=== PATIENT | male | born 1980 | race Caucasian/White ===

== ENCOUNTER 2018-05-30 06:05 | Emergency (ER) | payer MEDICAID, OTHER ==
[2018-05-30] MEDS ORDERED: Sodium Chloride 0.9% 1,000 ML IV SCH (07:15)
--- NOTE | 2018-05-30 07:23 | EDM.PDOC ---
ED HPI GENERAL MEDICAL PROBLEM - General Chief Complaint: Abdominal Pain Stated Complaint: STOMACH PAINS Time Seen by Provider: 05/30/18 07:20 Source of Information: Reports: Patient History Limitations: Reports: No Limitations - History of Present Illness INITIAL COMMENTS - FREE TEXT/NARRATIVE: pt arrived with pain in the upper abdoman. This started mainly in the rt upper quadrant and then moved to the mid abdoman. Onset: Gradual, Other ( started on and off for the past month. This has been worse for the past 2 days. ) Duration: Day(s): Location: Reports: Abdomen Associated Symptoms: Reports: Nausea/Vomiting abd pain Pain Score (Numeric/FACES): 4 - Related Data Allergies Allergy/AdvReac Type Severity Reaction Status Date / Time amoxicillin Allergy Hives Verified 05/30/18 06:43 Penicillins Allergy Hives Verified 05/30/18 06:43 Home Meds: Home Meds Albuterol [Ventolin HFA] 2 puff .XX Q4H PRN 05/30/18 [History] Fluticasone/Salmeterol [Advair 250-50 Diskus] 1 puff IH DAILY 05/30/18 [History] Oxymetazoline [Nasal Decongestant] 2 sprays BRITTANY BID PRN 05/30/18 [History] Past Medical History HEENT History: Reports: Allergic Rhinitis Respiratory History: Reports: Asthma Gastrointestinal History: Reports: None Musculoskeletal History: Reports: Fracture, Other (See Below) Other Musculoskeletal History: surgical repair of muscles in the neck Neurological History: Reports: Other (See Below) 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 - Infectious Disease History Infectious Disease History: Reports: Chicken Pox - Past Surgical History HEENT Surgical History: Reports: Myringotomy w Tube(s) GI Surgical History: Reports: Hernia, Abdominal Social & Family History - Tobacco Use Smoking Status *Q: Never Smoker - Caffeine Use Caffeine Use: Reports: Coffee, Soda - Recreational Drug Use Recreational Drug Use: No ED ROS GENERAL - Review of Systems Review Of Systems: See Below Constitutional: Reports: Decreased Appetite HEENT: Reports: No Symptoms Respiratory: Reports: No Symptoms Cardiovascular: Reports: No Symptoms Endocrine: Reports: No Symptoms GI/Abdominal: Reports: Abdominal Pain, Other (pt has had alot of bloating and pain in the upper abdoman. ) : Reports: No Symptoms Musculoskeletal: Reports: No Symptoms Skin: Reports: No Symptoms Neurological: Reports: No Symptoms Psychiatric: Reports: No Symptoms ED EXAM, GI/ABD - Physical Exam Exam: See Below Text/Narrative:: pt arrived with pain in the upper abdoman. He feels bloated and nauseated alot. He is not vomiting. This started 1 month ago but he he has been much worse the past 2 days. Exam Limited By: No Limitations General Appearance: Alert, Moderate Distress, Other (pt is rating his pain at a 4. ) Ears: Normal TMs Nose: Normal Inspection Throat/Mouth: Normal Inspection Head: Atraumatic Neck: Normal Inspection Respiratory/Chest: No Respiratory Distress Cardiovascular: Regular Rate, Rhythm GI/Abdominal Exam: Other (mild tenderness in the upper abdoman. He is better since he arrived. ) (Male) Exam: Deferred Rectal (Males) Exam: Deferred Back Exam: Normal Inspection Extremities: Normal Inspection Neurological: Alert, Oriented, Normal Cognition Psychiatric: Normal Affect Course - Vital Signs Last Recorded V/S: Last Vital Signs Temp 36.0 C 05/30/18 06:45 Pulse 81 05/30/18 06:45 Resp 16 05/30/18 06:45 BP 127/90 05/30/18 06:45 Pulse Ox 96 05/30/18 06:45 - Orders/Labs/Meds Orders: Active Orders 24 hr Category Date Time Status UA W/MICROSCOPIC [URIN] Urgent Lab 05/30/18 07:13 Ordered Ondansetron [Zofran ODT] Med 05/30/18 08:17 Once 4 mg PO ONETIME ONE Medication Orders Ondansetron HCl (Zofran Odt) 4 mg PO ONETIME ONE Stop: 05/30/18 08:18 Labs: Laboratory Tests 05/30/18 05/30/18 05/30/18 Range/Units 07:19 07:27 07:27 WBC 11.1 H (4.5-11.0) K/uL RBC 5.22 (4.30-5.90) M/uL Hgb 15.0 (12.0-15.0) g/dL Hct 44.7 (40.0-54.0) % MCV 86 (80-98) fL MCH 29 (27-31) pg MCHC 34 (32-36) % Plt Count 292 (150-400) K/uL Neut % (Auto) 86 H (36-66) % Lymph % (Auto) 10 L (24-44) % [place] % (Auto) 3 (2-6) % Eos % (Auto) 1 L (2-4) % Baso % (Auto) 0 (0-1) % Sodium 138 L (140-148) mmol/L Potassium 4.3 (3.6-5.2) mmol/L Chloride 101 (100-108) mmol/L Carbon Dioxide 30 (21-32) mmol/L Anion Gap 11.3 (5.0-14.0) mmol/L BUN 14 (7-18) mg/dL Creatinine 0.9 (0.8-1.3) mg/dL Est Cr Clr Drug Dosing 116.03 mL/min Estimated GFR (MDRD) > 60 (>60) Glucose 106 (74-106) mg/dL Calcium 9.6 (8.5-10.1) mg/dL Total Bilirubin 0.3 (0.2-1.0) mg/dL AST 17 (15-37) U/L ALT 43 (12-78) U/L Alkaline Phosphatase 57 (46-116) U/L C-Reactive Protein 0.19 (0.0-0.3) mg/dL Total Protein 7.4 (6.4-8.2) g/dL Albumin 4.0 (3.4-5.0) g/dL Globulin 3.4 (2.3-3.5) g/dL Albumin/Globulin Ratio 1.2 (1.2-2.2) Lipase 122 (73-393) U/L Meds: Medications Generic Name Dose Route Start Last Admin Trade Name Freq PRN Reason Stop Dose Admin Ondansetron HCl 4 mg 05/30/18 08:17 Zofran Odt PO 05/30/18 08:18 ONETIME ONE Discontinued Medications Generic Name Dose Route Start Last Admin Trade Name Freq PRN Reason Stop Dose Admin Sodium Chloride 1,000 mls @ 999 mls/hr 05/30/18 07:15 Normal Saline IV ASDIRECTED BRUCE Pantoprazole Sodium 40 mg 05/30/18 08:04 05/30/18 08:09 Protonix PO 05/30/18 08:05 40 mg DAILY ONE Administration - Re-Assessments/Exams Free Text/Narrative Re-Assessment/Exam: 05/30/18 07:59 pt has a wbc at 11,000. He has normal lab work otherwise. He had a limited abdoman Us which showed a normal gb. Will plan to have the pt scoped. Departure - Departure Time of Disposition: 08:01 Disposition: Home, Self-Care 01 Condition: Fair Clinical Impression: Gastrointestinal irritation - Discharge Information Referrals: Trevor Bach MD [Primary Care Provider] - Forms: ED Department Discharge Care Plan Goals: continue same meds, prilosec 20 mg daily schedule gastroscoping prior to pt leaving the ER zoforan 4mg subling q6h as needed for nausea., elevate head when resting with pillows. - My Orders Last 24 Hours: My Active Orders 05/30/18 07:13 UA W/MICROSCOPIC [URIN] Urgent 05/30/18 08:17 Ondansetron [Zofran ODT] 4 mg PO ONETIME ONE - Assessment/Plan Last 24 Hours: My Active Orders 05/30/18 07:13 UA W/MICROSCOPIC [URIN] Urgent 05/30/18 08:17 Ondansetron [Zofran ODT] 4 mg PO ONETIME ONE
--- NOTE | 2018-05-30 08:00 | CRLUS ---
INDICATION: Right upper quadrant pain. TECHNIQUE: Ultrasound abdomen limited. Sonographic images of the right upper quadrant were obtained using alan-scale and color Doppler images. COMPARISON: No comparison FINDINGS: Liver: Normal in size and echotexture. No masses. No intrahepatic biliary dilatation. Gallbladder: No stones or sludge. Normal wall thickness. No pericholecystic fluid. Common bile duct: 4 mm. Pancreas: Unremarkable. Right kidney: 11.6 cm. Normal echotexture and cortex. No masses, stones, or hydronephrosis. Vasculature: Proximal abdominal aorta and IVC are unremarkable. IMPRESSION: Unremarkable right upper quadrant ultrasound. Dictated by Jose Antonio Schrader MD @ May 30 2018 7:58AM Signed by Dr. Jose Antonio Schrader @ May 30 2018 7:58AM
[2018-05-30] MEDS ORDERED: Pantoprazole 40 MG Tab.CR PO ONE (08:04)
[2018-05-30] MEDS ORDERED: Ondansetron 4 MG Tab.DIS PO ONE (08:17)
== END 2018-05-30 08:43 | disposition home or self-care (01) ==
LOC: JP.ED 06:05
DX: K31.89 Other diseases of stomach and duodenum (principal); J45.909 Unspecified asthma, uncomplicated; Z79.51 Long term (current) use of inhaled steroids; Z79.899 Other long term (current) drug therapy; Z88.1 Allergy status to other antibiotic agents; Z88.0 Allergy status to penicillin
CPT/HCPCS: 36415; 76705; 80053; 83690; 85025; 86140; 99284; A9270

== ENCOUNTER 2018-05-30 22:49 | Emergency (ER) | payer MEDICAID ==
--- NOTE | 2018-05-30 23:23 | EDM.PDOC ---
ED HPI GENERAL MEDICAL PROBLEM - General Chief Complaint: Abdominal Pain Stated Complaint: ABD PAIN Time Seen by Provider: 05/30/18 23:10 Source of Information: Reports: Patient, Old Records, RN History Limitations: Reports: No Limitations - History of Present Illness INITIAL COMMENTS - FREE TEXT/NARRATIVE: 38 yo male was seen here early this morning for abdominal pain. His work up including blood work and an US were unremarkable. He was prescribed Zofran for nausea which he is taking with partial relief of his nausea. No fever. No black or bloody stools. Has not had a pHx of PUD. Points to the epigastrium as his area of pain. Pain is increased several minutes after eating. Also prescribed omeprazole and gastroscopy is scheduled. His only surgery on his abdomen was for hernia repair as a child. Onset: Today Onset Date: 05/30/18 Onset Time: 06:00 Duration: Hour(s):, Constant Location: Reports: Abdomen Quality: Reports: Ache Severity: Moderate Improves with: Reports: None Worsens with: Reports: Eating Context: Reports: Other (See HPI) Associated Symptoms: Reports: Loss of Appetite, Nausea/Vomiting. Denies: Fever/ Chills Treatments [employer]: Reports: Other (see below) (zofran, Prilosec) Left Upper Abdomen Pain Score (Numeric/FACES): 8 - Related Data Allergies Allergy/AdvReac Type Severity Reaction Status Date / Time amoxicillin Allergy Hives Verified 05/30/18 23:04 Penicillins Allergy Hives Verified 05/30/18 23:04 shellfish derived Allergy Cannot Verified 05/31/18 00:02 Remember Home Meds: Home Meds Albuterol [Ventolin HFA] 2 puff .XX Q4H PRN 05/30/18 [History] Fluticasone/Salmeterol [Advair 250-50 Diskus] 1 puff IH DAILY 05/30/18 [History] Ondansetron [Zofran ODT] 4 mg PO Q6H PRN 05/30/18 [History] Oxymetazoline [Nasal Decongestant] 2 sprays BRITTANY BID PRN 05/30/18 [History] Past Medical History HEENT History: Reports: Allergic Rhinitis Respiratory History: Reports: Asthma Gastrointestinal History: Reports: None Musculoskeletal History: Reports: Fracture, Other (See Below) Other Musculoskeletal History: surgical repair of muscles in the neck Neurological History: Reports: Other (See Below) 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 - Infectious Disease History Infectious Disease History: Reports: Chicken Pox - Past Surgical History HEENT Surgical History: Reports: Myringotomy w Tube(s) GI Surgical History: Reports: Hernia, Abdominal Social & Family History - Tobacco Use Smoking Status *Q: Never Smoker - Caffeine Use Caffeine Use: Reports: Coffee, Soda - Recreational Drug Use Recreational Drug Use: No ED ROS GENERAL - Review of Systems Review Of Systems: See Below Constitutional: Reports: No Symptoms HEENT: Reports: No Symptoms Respiratory: Reports: No Symptoms Cardiovascular: Reports: No Symptoms Endocrine: Reports: No Symptoms GI/Abdominal: Reports: Abdominal Pain, Decreased Appetite, Nausea. Denies: Black Stool, Bloody Stool, Constipation, Diarrhea, Distension, Flatus, Hematemesis, Hematochezia, Melena, Vomiting : Reports: No Symptoms Musculoskeletal: Reports: No Symptoms Skin: Reports: No Symptoms Neurological: Reports: No Symptoms Psychiatric: Reports: No Symptoms ED EXAM, GI/ABD - Physical Exam Exam: See Below Exam Limited By: No Limitations General Appearance: Alert, WD/WN, Mild Distress Eyes: Bilateral: Normal Appearance Ears: Normal External Exam, Normal Canal, Hearing Grossly Normal Nose: Normal Inspection, No Blood Throat/Mouth: Normal Inspection, Normal Lips, Normal Oropharynx, Normal Voice, No Airway Compromise Head: Atraumatic, Normocephalic Neck: Normal Inspection Respiratory/Chest: No Respiratory Distress, Lungs Clear, Normal Breath Sounds, No Accessory Muscle Use Cardiovascular: Regular Rate, Rhythm, No Edema GI/Abdominal Exam: Soft, No Distention, Tender (epigastrium), Abnormal Bowel Sounds (increased). No: Non-Tender, Distended, Guarding, Rigid, Rebound Back Exam: Normal Inspection. No: CVA Tenderness (R), CVA Tenderness (L) Extremities: Normal Inspection, Normal Range of Motion, Non-Tender, No Pedal Edema Neurological: Alert, Oriented, CN II-XII Intact, Normal Cognition, No Motor/ Sensory Deficits Psychiatric: Normal Affect, Normal Mood Skin Exam: Warm, Dry, Intact, Normal Color, No Rash Course - Vital Signs Text/Narrative:: Did not get relief from GI cocktail po. Last Recorded V/S: Last Vital Signs Temp 36.6 C 05/31/18 00:21 Pulse 73 02/16/19 00:21 Resp 16 05/31/18 00:21 BP 144/99 H 05/31/18 00:21 Pulse Ox 98 05/31/18 00:21 - Orders/Labs/Meds Orders: Active Orders 24 hr Category Date Time Status Hemoccult [Fecal Occult Blood Collection] [RC] Care 05/30/18 23:55 Active ASDIRECTED H. PYLORI STOOL AG, EIA Routine Lab 05/30/18 23:23 Ordered Iopamidol [Isovue-300 (61%)] Med 05/31/18 00:22 Active 129 ml IV . DIRECTED PRN Sodium Chloride 0.9% [Normal Saline] 70 ml Med 05/31/18 00:30 Active IV ASDIRECTED Medication Orders Sodium Chloride (Normal Saline) 70 mls @ 3.5 mls/sec IV ASDIRECTED BRUCE Last Admin: 05/31/18 00:40 Dose: 3.5 mls/sec Iopamidol (Isovue-300 (61%)) 129 ml IV . DIRECTED PRN PRN Reason: RADIOLOGY EXAM Stop: 06/01/18 00:23 Last Admin: 05/31/18 00:40 Dose: 129 ml Labs: Laboratory Tests 05/30/18 05/30/18 05/30/18 Range/Units 23:20 23:30 23:30 WBC 15.2 H (4.5-11.0) K/uL RBC 5.17 (4.30-5.90) M/uL Hgb 14.7 (12.0-15.0) g/dL Hct 44.2 (40.0-54.0) % MCV 86 (80-98) fL MCH 28 (27-31) pg MCHC 33 (32-36) % Plt Count 292 (150-400) K/uL C-Reactive Protein 0.23 (0.0-0.3) mg/dL Lipase 180 (73-393) U/L Meds: Medications Generic Name Dose Route Start Last Admin Trade Name Freq PRN Reason Stop Dose Admin Sodium Chloride 70 mls @ 3.5 mls/sec 05/31/18 00:30 05/31/18 00:40 Normal Saline IV 3.5 mls/sec ASDIRECTED BRUCE Administration Iopamidol 129 ml 05/31/18 00:22 05/31/18 00:40 Isovue-300 (61%) IV 06/01/18 00:23 129 ml . DIRECTED PRN Administration RADIOLOGY EXAM Discontinued Medications Generic Name Dose Route Start Last Admin Trade Name Curt PRN Reason Stop Dose Admin Al Hydroxide/Mg Hydroxide 15 0 ml 05/30/18 23:17 05/30/18 23:30 ml/ Lidocaine HCl 15 ml PO 05/30/18 23:18 30 ml ONETIME ONE Administration Diphenhydramine HCl 50 mg 05/31/18 00:10 05/31/18 00:17 Benadryl IVPUSH 05/31/18 00:11 50 mg ONETIME ONE Administration Hydromorphone HCl 1 mg 05/30/18 23:47 05/31/18 00:04 Dilaudid IVPUSH 05/30/18 23:48 1 mg ONETIME ONE Administration Lactated Ringer's 1,000 mls @ 1,000 mls/hr 05/30/18 23:47 05/31/18 00:07 Ringers, Lactated IV 05/31/18 00:46 1,000 mls/hr BOLUS ONE Administration Sodium Chloride 10 ml 05/31/18 00:22 05/31/18 00:31 Saline Flush FLUSH 05/31/18 00:23 10 ml ONETIME ONE Administration - Radiology Interpretation Free Text/Narrative:: CT abd/pelvis with IV contrast-neg CT Results Date: 05/30/18 Departure - Departure Time of Disposition: 01:25 Disposition: Home, Self-Care 01 Condition: Fair Clinical Impression: Abdominal pain Qualifiers: Abdominal location: upper abdomen, unspecified Qualified Code(s): R10.10 - Upper abdominal pain, unspecified - Discharge Information *PRESCRIPTION DRUG MONITORING PROGRAM REVIEWED*: No *COPY OF PRESCRIPTION DRUG MONITORING REPORT IN PATIENT JOHN: No Instructions: Abdominal Pain, Adult, [id number] Referrals: Trevor Bach MD [Primary Care Provider] - Forms: ED Department Discharge Additional Instructions: Add Percocet OR acetaminophen to your current medications. Recheck in the clinic on Saturday, return here if worse in the interim. Keep your scheduled appt for gastroscopy. - My Orders Last 24 Hours: My Active Orders 05/30/18 23:23 H. PYLORI STOOL AG, EIA Routine 05/30/18 23:55 Hemoccult [Fecal Occult Blood Collection] [RC] ASDIRECTED 05/31/18 00:22 Iopamidol [Isovue-300 (61%)] 129 ml IV . DIRECTED PRN 05/31/18 00:30 Sodium Chloride 0.9% [Normal Saline] 70 ml IV ASDIRECTED - Assessment/Plan Last 24 Hours: My Active Orders 05/30/18 23:23 H. PYLORI STOOL AG, EIA Routine 05/30/18 23:55 Hemoccult [Fecal Occult Blood Collection] [RC] ASDIRECTED 05/31/18 00:22 Iopamidol [Isovue-300 (61%)] 129 ml IV . DIRECTED PRN 05/31/18 00:30 Sodium Chloride 0.9% [Normal Saline] 70 ml IV ASDIRECTED
[2018-05-30] MEDS: Alum Hydrox/Mag Hydrox/Simeth 15 ML, Lidocaine 2% 15 ML PO ONE ×2 (23:30)
[2018-05-31] MEDS: HYDROmorphone 1 MG/ML Syringe IVPUSH ONE (00:04)
[2018-05-31] MEDS: Lactated Ringers 1,000 ML IV ONE (00:07)
[2018-05-31] MEDS: diphenhydrAMINE 50 MG/ML SDV IVPUSH ONE (00:17)
[2018-05-31] MEDS: Sodium Chloride 0.9% 10 ML Syringe FLUSH ONE (00:31)
[2018-05-31] MEDS: Iopamidol 612 MG/ML 150 ML Bottle IV PRN (00:40)
--- NOTE | 2018-05-31 01:02 | CRLCT ---
INDICATION: Epigastric pain, elevated white blood cell count TECHNIQUE: CT Abdomen and pelvis with i.v. contrast. Coronal and sagittal reformats were obtained. CONTRAST: 129 mL Isovue 300 COMPARISON: None FINDINGS: Lower chest: Moderate elevation left hemidiaphragm is noted with compressive atelectasis of the left lung base. Liver: Unremarkable. Spleen: There is a small nonspecific hypodense lesion in the posterior spleen measuring 1.6 cm and a round hypodense lesion anterior splenic dome measuring 1.7 cm. Pancreas: Unremarkable. Gallbladder: Unremarkable. Kidney: Unremarkable. No kidney or ureteral stones or obstruction seen. Adrenal: Unremarkable. Bowel: Unremarkable. The appendix is normal in appearance and size. Vascular: Unremarkable. Lymph: Unremarkable. Peritoneum: Unremarkable. No pneumoperitoneum is seen. No significant ascites is noted. Pelvis: Unremarkable. Soft tissue: Unremarkable. Bone: Unremarkable for age. IMPRESSION: 1. There is a small nonspecific hypodense lesion in the posterior spleen measuring 1.6 cm and a round hypodense lesion anterior splenic dome measuring 1.7 cm. 2. Moderate elevation left hemidiaphragm is noted with compressive atelectasis of the left lung base. Dictated by Ysoi Fam MD @ 05/31/2018 1:00:22 AM Please note that all CT scans at this facility use dose modulation, iterative reconstruction, and/or weight-based dosing when appropriate to reduce radiation dose to as low as reasonably achievable. Dictated by: Yosi Fam MD @ 05/31/2018 01:00:24 (Electronically Signed)
[2018-05-31] MEDS: Iohexol 647 MG/ML 50 ML SDV PO PRN (01:39)
--- NOTE | 2018-05-31 02:02 | CRLCR ---
INDICATION: Abdominal pain PRELIMINARY IMPRESSION: 1. Two submitted images shows oral contrast in the distal esophagus and in small bowel loops within the left flank. 2. No bowel obstruction is seen. Dictated by Yosi Fam MD @ 05/31/2018 2:00:44 AM Agree with preliminary report. No additional findings. No acute or specific finding to explain abdomen pain. Dictated by: Jere Bell MD @ 06/03/2018 08:47:23 (Electronically Signed)
== END 2018-05-31 03:17 | disposition home or self-care (01) ==
LOC: JP.ED 22:49
DX: R10.10 Upper abdominal pain, unspecified (principal); Z88.1 Allergy status to other antibiotic agents; Z88.0 Allergy status to penicillin; Z91.013 Allergy to seafood
CPT/HCPCS: 36415; 74177; 74240; 82272; 83690; 85027; 86140; 87338; 96361; 96374; 96375; 99285; A9270; J1170; J1200; J7030; J7120; Q9967

== ENCOUNTER 2018-06-03 05:47 | Day surgery (SDC) | payer MEDICAID ==
[2018-06-03] MEDS ORDERED: Glycopyrrolate 0.2 MG/ML 2 ML SDV IVPUSH ONE (06:04)
[2018-06-03] MEDS ORDERED: Dextrose 5%-Lactated Ringers 1,000 ML IV SCH (06:15)
[2018-06-03] MEDS ORDERED: Propofol 200 MG/20 ML SDV ONE (07:08)
[2018-06-03] MEDS ORDERED: fentaNYL 100 MCG/2 ML SDV ONE (07:08)
[2018-06-03] MEDS ORDERED: Midazolam 1 MG/ML 2 ML SDV ONE (07:08)
--- NOTE | 2018-06-09 13:45 | OR ---
DATE OF PROCEDURE: 06/03/2018 PREOPERATIVE DIAGNOSIS: Upper abdominal pain. POSTOPERATIVE DIAGNOSIS: Upper abdominal pain associated with minimal antral gastritis and duodenitis. OPERATIVE PROCEDURE: Esophagogastroduodenoscopy with biopsies of antrum for CLOtest. ANESTHESIA: IV sedation. INDICATION FOR PROCEDURE: This is a 38-year-old recently presenting to emergency room with some upper abdominal pain and postprandial bloating. The patient had a CT scan which was otherwise unremarkable. He was started on Pepcid and omeprazole, with this being on 05/30. By , he has not noted any significant improvement in his symptoms. Plan is to proceed with upper GI endoscopy with biopsies as indicated. Potential risks including bleeding and perforation were discussed, and the patient wishes to proceed. DETAILS OF PROCEDURE: The patient was taken to the operating room and placed in the left lateral decubitus position. IV sedation was administered after which the upper GI endoscope was passed orally through the length of the esophagus and into the stomach with retroflexion view of the fundus, and thereafter, through the pyloric channel, to the junction of the 3rd and 4th portions of the duodenum. Findings included normal hypopharynx, larynx, upper esophageal sphincter, and esophageal body. At the EG junction, no significant hiatal hernia or inflammation was noted. Within the stomach, a small amount of retained bile was present, but otherwise, there was some mild redness within the antrum and also duodenal bulb that was not associated with any ulcerations or erosions of the duodenal bulb. The remainder of the duodenal exam was unremarkable. At this point, biopsies were obtained from the antrum and sent for CLOtest for H. pylori. Minimal bleeding from the biopsy sites was seen and the procedure then concluded. The patient was taken to the recovery room in satisfactory condition. The plan will be to obtain a CCK-stimulated HIDA scan as the patient's symptoms at this point appear to be somewhat reminiscent of gallbladder disease. Carlton Yusuf MD /[id number]
== END 2018-06-03 09:05 | disposition home or self-care (01) ==
LOC: JP.SDS 05:47
PROVIDERS: ATTEND Surgery
DX: R10.10 Upper abdominal pain, unspecified (principal); K29.70 Gastritis, unspecified, without bleeding; K29.80 Duodenitis without bleeding; K21.9 Gastro-esophageal reflux disease without esophagitis; J45.909 Unspecified asthma, uncomplicated
CPT/HCPCS: 43239; 87081; J2250; J2704; J3010; J3490; J7042

== ENCOUNTER 2018-06-09 05:48 | Day surgery (SDC) | payer MEDICAID ==
[2018-06-09] MEDS: Dextrose 5%-Lactated Ringers 1,000 ML IV SCH ×3 (06:08→23:14)
[2018-06-09] MEDS ORDERED: Levofloxacin/Dextrose 5%-Water 500 MG in Premix Bag 1 BAG IV ONE (06:15)
[2018-06-09] MEDS ORDERED: Acetaminophen 500 MG Tab PO ONE (06:15)
[2018-06-09] MEDS ORDERED: Albuterol/Ipratropium 3.0-0.5 MG/3 ML Neb Soln NEB ONE (06:38)
[2018-06-09] MEDS ORDERED: Glycopyrrolate 0.2 MG/ML 5 ML MDV ONE (06:59)
[2018-06-09] MEDS ORDERED: Dexamethasone 4 MG/ML SDV ONE (06:59)
[2018-06-09] MEDS ORDERED: Propofol 200 MG/20 ML SDV ONE (06:59)
[2018-06-09] MEDS ORDERED: Ondansetron 4 MG/2 ML SDV ONE (06:59)
[2018-06-09] MEDS ORDERED: Rocuronium 50 MG/5 ML Vial ONE (06:59)
[2018-06-09] MEDS ORDERED: Neostigmine Methylsulfate 1 MG/ML 5 ML Syringe ONE (06:59)
[2018-06-09] MEDS ORDERED: fentaNYL 250 MCG/5 ML SDV ONE (06:59)
[2018-06-09] MEDS ORDERED: Bupivacaine 0.5%/EPINEPHrine 1:200,000 50 ML MDV ONE (07:00)
[2018-06-09] MEDS ORDERED: Ropivacaine 45 ML, Dexamethasone 8 MG, EPINEPHrine 0.4 MG, Sodium Chloride 0.9% 32.6 ML NERVRT SCH ×8 (08:00→09:00)
[2018-06-09] MEDS ORDERED: Ketamine 500 MG/5 ML MDV IV SCH (09:00)
[2018-06-09] MEDS ORDERED: Morphine PF 150 MG/30 ML PCA Syringe IV PRN (09:36)
[2018-06-09] MEDS ORDERED: Naloxone 0.4 MG/ML SDV IV PRN (09:36)
[2018-06-09] MEDS ORDERED: Albuterol/Ipratropium 3.0-0.5 MG/3 ML Neb Soln INH PRN (09:44)
[2018-06-09] MEDS ORDERED: Ondansetron 4 MG/2 ML SDV IVPUSH PRN (09:44)
[2018-06-09] MEDS ORDERED: Loratadine 10 MG Tab PO PRN (09:45)
[2018-06-09] MEDS ORDERED: Pantoprazole 40 MG Vial IVPUSH SCH (11:00)
[2018-06-09] MEDS: Albuterol/Ipratropium 3.0-0.5 MG/3 ML Neb Soln INH SCH ×3 (11:10→20:28)
[2018-06-09] MEDS: Fluticasone-Salmeterol 113-14 MCG Powder Inhalant INH SCH (20:28)
[2018-06-09] MEDS: Acetaminophen/HYDROcodone 325-5 MG Tab PO PRN (22:29)
[2018-06-10] MEDS: Acetaminophen/HYDROcodone 325-5 MG Tab PO PRN ×2 (03:55→07:48)
[2018-06-10] MEDS ORDERED: Levofloxacin/Dextrose 5%-Water 500 MG in Premix Bag 1 BAG IV SCH (06:00)
[2018-06-10] MEDS: Albuterol/Ipratropium 3.0-0.5 MG/3 ML Neb Soln INH SCH (07:11)
--- NOTE | 2018-06-10 07:12 | PCM.DCSUM1 ---
Discharge Summary - Hospital Course Free Text/Narrative:: Admission Diagnosis: 1. Gastrointestinal irritation. 2. Abdominal pain. 3. Status post laparoscopic cholecystectomy. Discharge Diagnosis: Diagnostic laparoscopic cholecystectomy for biliary dyskinesia. Date of surgery : 06/09/18. Surgeon: Carlton Yusuf MD. Brief History: History: Paco Nickerson is a 38-year-old male with biliary dyskinesia. After preoperative evaluation and discussion of possible risks and possible complications, she wished to proceed with surgical procedure. Hospital Course: Liya had his surgery on 06/09/18. He had no evident operative complications. After surgery the same day, he was changed to oral pain medications and this controlled pain well. Was able to tolerate diet. His activity was good. Urinary output was satisfactory. Has not had a BM at this time. On 06/10/18, he was able to be discharged home without any complications. - Discharge Data Discharge Date: 06/10/18 Discharge Disposition: Home, Self-Care 01 Condition: Good - Patient Summary/Data Consults: Consultations 06/09/18 09:13 Respiratory Care Assess and Treatment [CONS] Routine Comment: Physician Instructions: Post-Op Pneumonia Prevention - Patient Instructions Diet: Usual Diet as Tolerated, Drink 8-10+ Glasses/Day Activity: No Lifting Over 10 Pounds (for 2 weeks. ) Activity, Other: Walk 6 times daily distance and time as tolerated Driving: Do Not Drive (for 1 week and while on narcotic pain medication) Showering/Bathing: May Shower Wound/Incision Care: Keep Operative Site/Wound Site Clean and Dry Notify Provider of: Fever, Increased Pain, Nausea and/or Vomiting Other/Special Instructions: Use incentive inspirometer 10 times every hour while awake for 1 week. - Discharge Plan Prescriptions/Med Rec: Acetaminophen/HYDROcodone [[place] 325-5 MG] 1 tab PO Q4H PRN #40 tablet PRN Reason: Pain Home Medications: Home Meds Albuterol [Ventolin HFA] 2 puff .XX Q4H PRN 05/30/18 [History] Fluticasone/Salmeterol [Advair 250-50 Diskus] 1 puff IH BID 05/30/18 [History] Ondansetron [Zofran ODT] 4 mg PO Q6H PRN 05/30/18 [History] Famotidine 20 mg PO BID 06/02/18 [History] Omeprazole 20 mg PO DAILY 06/03/18 [History] Polyethylene Glycol 3350 [MiraLAX] 17 gm PO DAILY 06/03/18 [History] Acetaminophen/HYDROcodone [[place] 325-5 MG] 1 tab PO Q4H PRN #40 tablet 06/10/18 [Rx] Referrals: Carlton Yusuf MD [Physician] - 06/18/18 9:00 am - Discharge Summary/Plan Comment DC Time >30 min.: Yes - Patient Data Vitals - Most Recent: Last Vital Signs Temp 35.8 C 06/10/18 03:00 Pulse 73 06/10/18 03:00 Resp 16 06/10/18 03:00 BP 119/77 06/10/18 03:00 Pulse Ox 95 06/10/18 03:00 Weight - Most Recent: 86.183 kg I&O - Last 24 hours: Intake & Output 06/09/18 06/10/18 06/10/18 22:59 06:59 14:59 Intake Total 2113 2100 Balance 211 2100 Lab Results - Last 24 hrs: Laboratory Results - last 24 hr 06/10/18 06/10/18 Range/Units 04:00 04:00 WBC 12.1 H (4.5-11.0) K/uL RBC 4.46 (4.30-5.90) M/uL Hgb 12.8 (12.0-15.0) g/dL Hct 39.1 L (40.0-54.0) % MCV 88 (80-98) fL MCH 29 (27-31) pg MCHC 33 (32-36) % Plt Count 265 (150-400) K/uL Neut % (Auto) 85 H (36-66) % Lymph % (Auto) 9 L (24-44) % [place] % (Auto) 6 (2-6) % Eos % (Auto) 0 L (2-4) % Baso % (Auto) 0 (0-1) % Total Bilirubin 0.3 (0.2-1.0) mg/dL Alkaline Phosphatase 50 (46-116) U/L Med Orders - Current: Current Medications Hydrocodone Bitart/Acetaminophen ([place] 325-5 Mg) 1 tab PO Q3H PRN PRN Reason: Pain Last Admin: 06/10/18 03:55 Dose: 1 tab Albuterol/Ipratropium (Duoneb 3.0-0.5 Mg/3 Ml) 3 ml INH QIDRT [facility] Last Admin: 06/09/18 20:28 Dose: Not Given Albuterol/Ipratropium (Duoneb 3.0-0.5 Mg/3 Ml) 3 ml INH ASDIRECTED PRN PRN Reason: BREATHING Dextrose/Lactated Ringer's (Dextrose 5%-Lactated Ringers) 1,000 mls @ 100 mls/ hr IV ASDIRECTED [facility] Last Admin: 06/09/18 23:14 Dose: 100 mls/hr Levofloxacin/Dextrose 500 mg/ (Premix) 100 mls @ 100 mls/hr IV Q24H [facility] Last Admin: 06/10/18 06:00 Dose: 100 mls/hr Loratadine (Claritin) 10 mg PO DAILY PRN PRN Reason: ALLERGIES Morphine Sulfate (Morphine Top Lift Cutter 150 Mg In 30 Ml) 0 mg IV ASDIRECTED PRN; Protocol PRN Reason: Pain Last Admin: 06/09/18 09:50 Dose: 150 mg Naloxone HCl (Narcan) 0.1 mg IV ASDIRECTED PRN PRN Reason: decreased respiratory rate Ondansetron HCl (Zofran) 4 mg IVPUSH Q4H PRN PRN Reason: Nausea/Vomiting Pantoprazole Sodium (Protonix Iv) 40 mg IVPUSH Q24H [facility] Last Admin: 06/09/18 11:23 Dose: 40 mg Fluticasone/Salmeterol (Fluticasone-Salmeterol 113-14 Mcg Powder [facility]) 1 puff INH BIDRT [facility] Last Admin: 06/09/18 20:28 Dose: Not Given Discontinued Medications Acetaminophen (Tylenol Extra Strength) 1,000 mg PO ONETIME ONE Stop: 06/09/18 06:16 Last Admin: 06/09/18 06:07 Dose: 1,000 mg Albuterol/Ipratropium (Duoneb 3.0-0.5 Mg/3 Ml) 3 ml NEB ONETIME ONE Stop: 06/09/18 06:39 Last Admin: 06/09/18 07:07 Dose: 3 ml Bupivacaine HCl/Epinephrine Bitart (Marcaine 0.5%/Epinephrine 1:200,000) Confirm Administered Dose 50 ml .ROUTE .STK-MED ONE Stop: 06/09/18 07:01 Ropivacaine 45 ml/Dexamethasone 8 mg/Epinephrine HCl 0.4 mg/ Sodium Chloride 32.6 ml 0 ml NERVRT ASDIRECTED [facility] Last Admin: 06/09/18 07:46 Dose: 80 syringe Dexamethasone (Dexamethasone) Confirm Administered Dose 4 mg .ROUTE .STK-MED ONE Stop: 06/09/18 07:00 Fentanyl (Sublimaze) Confirm Administered Dose 250 mcg .ROUTE .STK-MED ONE Stop: 06/09/18 07:00 Glycopyrrolate (Robinul) Confirm Administered Dose 1 mg .ROUTE .STK-MED ONE Stop: 06/09/18 07:00 Levofloxacin/Dextrose 500 mg/ (Premix) 100 mls @ 100 mls/hr IV ONETIME ONE Stop: 06/09/18 07:14 Last Admin: 06/09/18 07:08 Dose: 100 mls/hr Ketamine HCl (Ketalar) 37 mg IV ASDIRECTED [facility] Neostigmine Methylsulfate (Neostigmine) Confirm Administered Dose 5 mg .ROUTE .STK-MED ONE Stop: 06/09/18 07:00 Ondansetron HCl (Zofran) Confirm Administered Dose 4 mg .ROUTE .STK-MED ONE Stop: 06/09/18 07:00 Propofol (Diprivan 20 Ml) Confirm Administered Dose 200 mg .ROUTE .STK-MED ONE Stop: 06/09/18 07:00 Rocuronium Silvis (Zemuron) Confirm Administered Dose 50 mg .ROUTE .STK-MED ONE Stop: 06/09/18 07:00 - Exam Physical Findings Comments:: General: Paco Nickerson is a 38-year-old male, height is 5'10" and weight is 190 lbs. HEENT: Negative. Neck: Supple. Heart: Regular rate and rhythm. Lungs: Clear. Abdomen: Dressing was removed. Sutures dry and intact. Expected tenderness in the right upper quadrant. Abdominal binder was removed during sleep. The incisions will be redressed by nursing before discharge. The patient can remove dressing tomorrow and shower at home. Extremities: Without peripheral edema. Disposition: Discharged to home. Condition: Stable and improving. Follow-Up Appointment: Carlton Yusuf MD, on 06/18/18 at 9:00 AM. Medications: New prescriptions: 1. Boling 325-5 mg 1 tab orally every 4 hours as needed for pain (#40 tabs given) . 2. MiraLax 17 grams orally daily for bowel stimulation. 3. Zofran 4 mg orally every 6 hours as needed for nausea and vomiting. He is to resume his home medications: 1. Albuterol 2 puffs every 4 hours as needed. 2. Advair 1 puff twice a day. 3. Famotidine 20 mg orally twice a day. 4. Omeprazole 20 mg orally daily.
[2018-06-10] MEDS: Fluticasone-Salmeterol 113-14 MCG Powder Inhalant INH SCH (07:34)
--- NOTE | 2018-06-10 12:24 | OR ---
DATE OF PROCEDURE: 06/09/2018 PREOPERATIVE DIAGNOSIS: Biliary dyskinesia. POSTOPERATIVE DIAGNOSIS: Biliary dyskinesia. PROCEDURE: Laparoscopic cholecystectomy (05809). ANESTHESIA: General. CARGO SURVEYOR: July Ardon PA-C and MARY CARMEN Thorpe. INDICATION FOR PROCEDURE: This is a 38-year-old presenting with some ongoing postprandial right upper quadrant pain. Initial workup consisting of CT scan and upper endoscopy failed to show an obvious source of the discomfort. A CCK-stimulated HIDA scan was obtained last week which did show a below normal ejection fraction along with reproduction of the patient's symptoms with the CCK injection. Given this, he is to undergo a cholecystectomy. Potential risks including bleeding, infection, injury to underlying viscera, possibility of stones or sludge moving into the common bile duct requiring additional procedures for correction as well as possibility of incomplete relief of symptoms following the procedure were all reviewed, and the patient wishes to proceed. DETAILS OF PROCEDURE: The patient was taken to the operating room and placed in a supine position. After general endotracheal anesthesia was induced, the abdomen was prepped and draped. A transverse epigastric incision was made and the peritoneal cavity entered under direct vision with an Optiview trocar inflated to 15 mmHg pressure with CO2. Laparoscope was reinserted. No underlying trocar insertion site injuries were seen. Following this, a 12 mm trocar was placed in the immediate subumbilical area and a 5 mm trocar placed in the right upper quadrant. The upper abdomen was examined and the patient was noted to have a somewhat distended and slightly edematous-appearing gallbladder. The gallbladder was retracted anteriorly and laterally and dissection began on the gallbladder neck and continued around the gallbladder neck and cystic duct junction. Once that area was well delineated as was the adjacent cystic artery, both structures were clipped 3 times proximally, once distally, and divided. The gallbladder was then dissected off the gallbladder bed using Harmonic scalpel and delivered through the epigastric trocar site. The gallbladder was noted to contain some fine sludge within it as well as having a cholesterolosis of the gallbladder mucosa. Following this, the area of dissection was inspected. Some minor bleeding from the gallbladder bed was controlled with electrocautery. A drain was felt not to be necessary. The trocars were then sequentially removed. The fascia at the midline 12 mm sites was closed with 0 Vicryl stitch and the skin at each incision with 4-0 Vicryl skin stitch. Dressing was applied. The patient was taken to the recovery room in satisfactory condition. Physician broker assistant, July Ardon, played an essential role in assisting in this case, helping to position the patient, retract structures as needed as well as suturing and cutting sutures when indicated. Her presence improved the patient's safety and improved the efficiency of the operative procedure. Carlton Yusuf MD /[id number]
== END 2018-06-10 11:40 | disposition home or self-care (01) ==
LOC: JP.SDS 05:48 → JP.MS 08:30 → JP.SDS 06-10 11:40
PROVIDERS: ATTEND Surgery
DX: K81.1 Chronic cholecystitis (principal); K31.89 Other diseases of stomach and duodenum; J45.909 Unspecified asthma, uncomplicated; F41.9 Anxiety disorder, unspecified; K21.9 Gastro-esophageal reflux disease without esophagitis; Z79.899 Other long term (current) drug therapy; Z88.0 Allergy status to penicillin; Z88.1 Allergy status to other antibiotic agents; G89.18 Other acute postprocedural pain; R10.0 Acute abdomen; E86.0 Dehydration; Z90.49 Acquired absence of other specified parts of digestive tract; Z91.013 Allergy to seafood
CPT/HCPCS: 36415; 36600; 47562; 80053; 81001; 82247; 82803; 83690; 84075; 85025; 85027; 88304; 94640; 94762; 96361; 96374; 96375; 96376; 99284; A9270; C9113; G0378; J0171; J0780; J1100; J1170; J1956; J2060; J2270; J2405; J2704; J2710; J2795; J3010; J3490; J7030; J7042; J7050; 90686; G0008; J7120; J7620-GY

== ENCOUNTER 2018-06-10 17:59 | Observation (INO) | payer MEDICAID ==
[2018-06-10] MEDS ORDERED: Prochlorperazine 10 MG/2 ML SDV IVPUSH ONE (18:38)
[2018-06-10] MEDS ORDERED: LORazepam 2 MG/ML SDV IVPUSH ONE (18:39)
[2018-06-10] MEDS ORDERED: HYDROmorphone 0.5 MG/0.5 ML Syringe IVPUSH ONE (18:39)
--- NOTE | 2018-06-10 18:45 | EDM.PDOC ---
ED HPI GENERAL MEDICAL PROBLEM - General Chief Complaint: Abdominal Pain Stated Complaint: POST OP PAIN IN ABD Time Seen by Provider: 06/10/18 18:41 Source of Information: Reports: Patient History Limitations: Reports: No Limitations - History of Present Illness INITIAL COMMENTS - FREE TEXT/NARRATIVE: pt arrived with pain in the abdoman. He has been vomiting markedly. he had his gallbladder removed yesterday. He was not able to get pain meds because they had just been filled in ER # 8 Onset: Today, Other ( Pt has seemed slightly confused when he wakes up. He did take some narco at home. He is almost continuously hiccuping. ) Duration: Hour(s): Location: Reports: Abdomen Associated Symptoms: Reports: Nausea/Vomiting, Other (hiccups. ) Abdominal Pain Score (Numeric/FACES): 9 - Related Data Allergies Allergy/AdvReac Type Severity Reaction Status Date / Time amoxicillin Allergy Hives Verified 06/09/18 06:32 cefaclor Allergy Other Verified 06/09/18 06:32 Penicillins Allergy Hives Verified 06/09/18 06:32 shellfish derived Allergy Cannot Verified 06/09/18 06:32 Remember Home Meds: Home Meds Albuterol [Ventolin HFA] 2 puff .XX Q4H PRN 05/30/18 [History] Fluticasone/Salmeterol [Advair 250-50 Diskus] 1 puff IH BID 05/30/18 [History] Ondansetron [Zofran ODT] 4 mg PO Q6H PRN 05/30/18 [History] Famotidine 20 mg PO BID 06/02/18 [History] Omeprazole 20 mg PO DAILY 06/03/18 [History] Polyethylene Glycol 3350 [MiraLAX] 17 gm PO DAILY 06/03/18 [History] Acetaminophen/HYDROcodone [[place] 325-5 MG] 1 tab PO Q4H PRN #40 tablet 06/10/18 [Rx] Past Medical History HEENT History: Reports: Allergic Rhinitis Respiratory History: Reports: Asthma Gastrointestinal History: Reports: None Musculoskeletal History: Reports: Fracture, Other (See Below) Other Musculoskeletal History: surgical repair of muscles in the neck Neurological History: Reports: Other (See Below) 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 - Infectious Disease History Infectious Disease History: Reports: Chicken Pox - Past Surgical History HEENT Surgical History: Reports: Myringotomy w Tube(s) Respiratory Surgical History: Reports: None GI Surgical History: Reports: Cholecystectomy, Hernia, Abdominal Neurological Surgical History: Reports: None Musculoskeletal Surgical History: Reports: Arthroscopic Knee Dermatological Surgical History: Reports: None Social & Family History - Family History Family Medical History: Noncontributory - Tobacco Use Smoking Status *Q: Never Smoker - Caffeine Use Caffeine Use: Reports: None - Recreational Drug Use Recreational Drug Use: No ED ROS GENERAL - Review of Systems Review Of Systems: See Below Constitutional: Reports: Weakness, Other (marked vomiting and hiccups. ) HEENT: Reports: No Symptoms Respiratory: Reports: No Symptoms Cardiovascular: Reports: No Symptoms Endocrine: Reports: No Symptoms GI/Abdominal: Reports: Abdominal Pain, Nausea, Vomiting, Other (hiccups) : Reports: No Symptoms Musculoskeletal: Reports: No Symptoms Skin: Reports: No Symptoms ED EXAM, GI/ABD - Physical Exam Exam: See Below Text/Narrative:: pt arrived with acute abdomanal pain and he is nauseated. He does have the hiccups and he is hyperventilating. Exam Limited By: No Limitations General Appearance: Alert, Anxious, Moderate Distress, Other (pupils are equal and reactive. His girlfriend states he has been mildly confused when he first wakes up. ) Ears: Normal TMs Nose: Normal Inspection Throat/Mouth: Normal Inspection Head: Atraumatic Neck: Normal Inspection Respiratory/Chest: No Respiratory Distress Cardiovascular: Regular Rate, Rhythm, Tachycardia GI/Abdominal Exam: Other (bk is tender over the incisional site. ) (Male) Exam: Deferred Rectal (Males) Exam: Deferred Back Exam: Normal Inspection Extremities: Normal Inspection Neurological: Alert, Oriented, Normal Cognition Psychiatric: Anxious Course - Vital Signs Last Recorded V/S: Last Vital Signs Temp 36.8 C 06/10/18 18:11 Pulse 110 H 06/10/18 18:11 Resp 20 06/10/18 18:11 BP 156/106 H 06/10/18 18:11 Pulse Ox 92 L 06/10/18 18:11 - Orders/Labs/Meds Orders: Active Orders 24 hr Category Date Time Status UA W/MICROSCOPIC [URIN] Urgent Lab 06/10/18 20:10 Ordered Sodium Chloride 0.9% [Normal Saline] 1,000 ml Med 06/10/18 18:45 Active IV ASDIRECTED Medication Orders Sodium Chloride (Normal Saline) 1,000 mls @ 999 mls/hr IV ASDIRECTED [facility] Last Admin: 06/10/18 18:51 Dose: 999 mls/hr Labs: Laboratory Tests 06/10/18 06/10/18 06/10/18 Range/Units 18:37 18:37 18:52 WBC 14.9 H (4.5-11.0) K/uL RBC 5.28 (4.30-5.90) M/uL Hgb 14.9 D (12.0-15.0) g/dL Hct 45.5 (40.0-54.0) % MCV 86 (80-98) fL MCH 28 (27-31) pg MCHC 33 (32-36) % Plt Count 296 (150-400) K/uL Neut % (Auto) 90 H (36-66) % Lymph % (Auto) 4 L (24-44) % [place] % (Auto) 5 (2-6) % Eos % (Auto) 1 L (2-4) % Baso % (Auto) 0 (0-1) % Puncture Site Rt brachial ABG pH 7.449 (7.350-7.450) ABG pCO2 36.9 (35.0-42.0) mmHg ABG pO2 64.2 L (75.0-100.0) mmHg ABG HCO3 25.2 (22.0-26.0) mmol/L ABG Total CO2 21.5 L (23.0-27.0) mmol/L ABG O2 Saturation 92.7 L (95.0-98.0) % ABG O2 Content 19.8 (15.0-23.0) %vol ABG Base Excess 1.9 mm/L ABG Hemoglobin 15.5 (13.5-18.0) g/dL ABG Oxyhemoglobin 90.9 % ABG Carboxyhemoglobin 1.2 (0.0-1.6) % ABG Methemoglobin 0.7 % Phillip Test Not performed O2 Delivery Device Room air Sodium 136 L (140-148) mmol/L Potassium 3.7 (3.6-5.2) mmol/L Chloride 98 L (100-108) mmol/L Carbon Dioxide 27 (21-32) mmol/L Anion Gap 14.7 H (5.0-14.0) mmol/L BUN 13 (7-18) mg/dL Creatinine 0.9 (0.8-1.3) mg/dL Est Cr Clr Drug Dosing 116.03 mL/min Estimated GFR (MDRD) > 60 (>60) Glucose 133 H (74-106) mg/dL Calcium 9.4 (8.5-10.1) mg/dL Total Bilirubin 0.6 D (0.2-1.0) mg/dL AST 36 D (15-37) U/L ALT 79 H (12-78) U/L Alkaline Phosphatase 63 (46-116) U/L Total Protein 7.9 (6.4-8.2) g/dL Albumin 4.1 (3.4-5.0) g/dL Globulin 3.8 H (2.3-3.5) g/dL Albumin/Globulin Ratio 1.1 L (1.2-2.2) Lipase (73-393) U/L 06/10/18 Range/Units 20:18 WBC (4.5-11.0) K/uL RBC (4.30-5.90) M/uL Hgb (12.0-15.0) g/dL Hct (40.0-54.0) % MCV (80-98) fL MCH (27-31) pg MCHC (32-36) % Plt Count (150-400) K/uL Neut % (Auto) (36-66) % Lymph % (Auto) (24-44) % [place] % (Auto) (2-6) % Eos % (Auto) (2-4) % Baso % (Auto) (0-1) % Puncture Site ABG pH (7.350-7.450) ABG pCO2 (35.0-42.0) mmHg ABG pO2 (75.0-100.0) mmHg ABG HCO3 (22.0-26.0) mmol/L ABG Total CO2 (23.0-27.0) mmol/L ABG O2 Saturation (95.0-98.0) % ABG O2 Content (15.0-23.0) %vol ABG Base Excess mm/L ABG Hemoglobin (13.5-18.0) g/dL ABG Oxyhemoglobin % ABG Carboxyhemoglobin (0.0-1.6) % ABG Methemoglobin % Phillip Test O2 Delivery Device Sodium (140-148) mmol/L Potassium (3.6-5.2) mmol/L Chloride (100-108) mmol/L Carbon Dioxide (21-32) mmol/L Anion Gap (5.0-14.0) mmol/L BUN (7-18) mg/dL Creatinine (0.8-1.3) mg/dL Est Cr Clr Drug Dosing mL/min Estimated GFR (MDRD) (>60) Glucose (74-106) mg/dL Calcium (8.5-10.1) mg/dL Total Bilirubin (0.2-1.0) mg/dL AST (15-37) U/L ALT (12-78) U/L Alkaline Phosphatase (46-116) U/L Total Protein (6.4-8.2) g/dL Albumin (3.4-5.0) g/dL Globulin (2.3-3.5) g/dL Albumin/Globulin Ratio (1.2-2.2) Lipase 99 (73-393) U/L Meds: Medications Generic Name Dose Route Start Last Admin Trade Name Freq PRN Reason Stop Dose Admin Sodium Chloride 1,000 mls @ 999 mls/hr 06/10/18 18:45 06/10/18 18:51 Normal Saline IV 999 mls/hr ASDIRECTED [facility] Administration Discontinued Medications Generic Name Dose Route Start Last Admin Trade Name Freq PRN Reason Stop Dose Admin Hydromorphone HCl 0.5 mg 06/10/18 18:39 06/10/18 18:46 Dilaudid IVPUSH 06/10/18 18:40 0.5 mg ONETIME ONE Administration Hydromorphone HCl 1 mg 06/10/18 20:10 Dilaudid IVPUSH 06/10/18 20:11 ONETIME ONE Lorazepam 0.5 mg 06/10/18 18:39 06/10/18 18:53 Ativan IVPUSH 06/10/18 18:40 0.5 mg ONETIME ONE Administration Prochlorperazine Edisylate 10 mg 06/10/18 18:38 06/10/18 18:47 Compazine IVPUSH 06/10/18 18:39 10 mg ONETIME ONE Administration - Re-Assessments/Exams Free Text/Narrative Re-Assessment/Exam: 06/10/18 20:34 pt has a wbc of 14,000. He has good looking lab work. He settled down with ativan, compazine and dilaudid. He does appear quite anxious. He did get home post op with no pain meds so the pain did get out of control. Departure - Departure Time of Disposition: 20:35 Disposition: Admitted As Inpatient 67 Condition: Fair Clinical Impression: Dehydration, Inadequate pain control, Status post laparoscopic cholecystectomy - Discharge Information Referrals: Carlton Yusuf MD [Primary Care Provider] - Forms: ED Department Discharge Care Plan Goals: admit to Dr Yusuf - My Orders Last 24 Hours: My Active Orders 06/10/18 18:45 Sodium Chloride 0.9% [Normal Saline] 1,000 ml IV ASDIRECTED 06/10/18 20:10 UA W/MICROSCOPIC [URIN] Urgent - Assessment/Plan Last 24 Hours: My Active Orders 06/10/18 18:45 Sodium Chloride 0.9% [Normal Saline] 1,000 ml IV ASDIRECTED 06/10/18 20:10 UA W/MICROSCOPIC [URIN] Urgent
[2018-06-10] MEDS: Sodium Chloride 0.9% 1,000 ML IV SCH ×2 (18:51→22:21)
[2018-06-10] MEDS ORDERED: HYDROmorphone 1 MG/ML Syringe IVPUSH ONE (20:10)
[2018-06-10] MEDS ORDERED: Sodium Chloride 0.9% 1,000 ML IV SCH ×2 (20:45→21:15)
[2018-06-10] MEDS ORDERED: Ondansetron 4 MG/2 ML SDV IV PRN (21:04)
[2018-06-10] MEDS ORDERED: HYDROmorphone/Normal Saline 15 MG/30 ML PCA IV PRN (21:18)
[2018-06-10] MEDS ORDERED: Naloxone 0.4 MG/ML SDV IVPUSH PRN (21:18)
[2018-06-11] MEDS: Lactated Ringers 1,000 ML IV SCH ×2 (06:01→06:02)
[2018-06-11] MEDS ORDERED: Ondansetron 4 MG Tab.DIS PO PRN (07:30)
[2018-06-11] MEDS ORDERED: Albuterol 8 GM Inhaler INH PRN (07:30)
[2018-06-11] MEDS ORDERED: Scopolamine 1.5 MG Transdermal Patch TRDERM PRN (07:30)
[2018-06-11] MEDS ORDERED: Magnesium Hydroxide 400 MG/5 ML Susp 30 ML Cup PO PRN (07:31)
[2018-06-11] MEDS ORDERED: Magnesium Hydroxide 400 MG/5 ML Susp 30 ML Cup PO ONE (08:00)
--- NOTE | 2018-06-11 08:02 | PCM.SURGPN ---
- General Info Date of Service: 06/11/18 Date of Surgery/Procedure: 06/09/18 POD#: 2 Post-Op Diagnosis: Post op laparoscopic cholecystectomy Admission Diagnosis/Problem: Biliary dyskinesia Functional Status: Reports: Pain Controlled, Tolerating Diet, Ambulating, Urinating - Review of Systems Systems Review Comment:: Paco Nickerson is a 38-year-old male who was discharged home from the hospital on 06/11/18 from post laparoscopic cholecystectomy. 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 He then had increased pain at home, became nauseous and vomited. Therefore, he returned back to hospital. This morning the pain is well controlled with Dilaudid but the patient will be transitioned back to oral [place]. The nausea is better with Zofran. To further help with the pain and nausea, a scopolamine patch will be given. To stimulate the bowels and eliminate future emesis, milk of magnesia was prescribed. The patient is up and ambulating, urinating, and tolerating diet. A prior authorization for [place] prescription will be done today. - Patient Data Vitals - Most Recent: Last Vital Signs Temp 36.7 C 06/11/18 07:57 Pulse 91 06/11/18 07:57 Resp 16 06/11/18 07:57 BP 147/96 H 06/11/18 07:57 Pulse Ox 94 L 06/11/18 07:57 Weight - Most Recent: 90.265 kg I&O - Last 24 Hours: Intake & Output 06/10/18 06/11/18 06/11/18 22:59 06:59 14:59 Intake Total 1544 Output Total 50 Balance -50 1544 Lab Results Last 24 Hrs: Laboratory Results - last 24 hr 06/10/18 06/10/18 06/10/18 Range/Units 18:37 18:37 18:52 WBC 14.9 H (4.5-11.0) K/uL RBC 5.28 (4.30-5.90) M/uL Hgb 14.9 D (12.0-15.0) g/dL Hct 45.5 (40.0-54.0) % MCV 86 (80-98) fL MCH 28 (27-31) pg MCHC 33 (32-36) % Plt Count 296 (150-400) K/uL Neut % (Auto) 90 H (36-66) % Lymph % (Auto) 4 L (24-44) % [place] % (Auto) 5 (2-6) % Eos % (Auto) 1 L (2-4) % Baso % (Auto) 0 (0-1) % Puncture Site Rt brachial ABG pH 7.449 (7.350-7.450) ABG pCO2 36.9 (35.0-42.0) mmHg ABG pO2 64.2 L (75.0-100.0) mmHg ABG HCO3 25.2 (22.0-26.0) mmol/L ABG Total CO2 21.5 L (23.0-27.0) mmol/L ABG O2 Saturation 92.7 L (95.0-98.0) % ABG O2 Content 19.8 (15.0-23.0) %vol ABG Base Excess 1.9 mm/L ABG Hemoglobin 15.5 (13.5-18.0) g/dL ABG Oxyhemoglobin 90.9 % ABG Carboxyhemoglobin 1.2 (0.0-1.6) % ABG Methemoglobin 0.7 % Phillip Test Not performed O2 Delivery Device Room air Sodium 136 L (140-148) mmol/L Potassium 3.7 (3.6-5.2) mmol/L Chloride 98 L (100-108) mmol/L Carbon Dioxide 27 (21-32) mmol/L Anion Gap 14.7 H (5.0-14.0) mmol/L BUN 13 (7-18) mg/dL Creatinine 0.9 (0.8-1.3) mg/dL Est Cr Clr Drug Dosing 116.03 mL/min Estimated GFR (MDRD) > 60 (>60) Glucose 133 H (74-106) mg/dL Calcium 9.4 (8.5-10.1) mg/dL Total Bilirubin 0.6 D (0.2-1.0) mg/dL AST 36 D (15-37) U/L ALT 79 H (12-78) U/L Alkaline Phosphatase 63 (46-116) U/L Total Protein 7.9 (6.4-8.2) g/dL Albumin 4.1 (3.4-5.0) g/dL Globulin 3.8 H (2.3-3.5) g/dL Albumin/Globulin Ratio 1.1 L (1.2-2.2) Lipase (73-393) U/L Urine Color Urine Appearance Urine pH (4.5-8.0) Ur Specific [place] (1.008-1.030) Urine Protein (NEGATIVE) mg/dL Urine Glucose (UA) (NEGATIVE) mg/dL Urine Ketones (NEGATIVE) mg/dL Urine Occult Blood (NEGATIVE) Urine Nitrite (NEGAITVE) Urine Bilirubin (NEGATIVE) Urine Urobilinogen (NORMAL) mg/dL Ur Leukocyte Esterase (NEGATIVE) Urine RBC (0-5) Urine WBC (0-5) Ur Epithelial Cells Amorphous Sediment Urine Bacteria Urine Mucus 06/10/18 06/10/18 06/11/18 Range/Units 20:10 20:18 04:20 WBC 9.5 (4.5-11.0) K/uL RBC 4.86 (4.30-5.90) M/uL Hgb 13.8 (12.0-15.0) g/dL Hct 42.6 (40.0-54.0) % MCV 88 (80-98) fL MCH 28 (27-31) pg MCHC 32 (32-36) % Plt Count 255 (150-400) K/uL Neut % (Auto) (36-66) % Lymph % (Auto) (24-44) % [place] % (Auto) (2-6) % Eos % (Auto) (2-4) % Baso % (Auto) (0-1) % Puncture Site ABG pH (7.350-7.450) ABG pCO2 (35.0-42.0) mmHg ABG pO2 (75.0-100.0) mmHg ABG HCO3 (22.0-26.0) mmol/L ABG Total CO2 (23.0-27.0) mmol/L ABG O2 Saturation (95.0-98.0) % ABG O2 Content (15.0-23.0) %vol ABG Base Excess mm/L ABG Hemoglobin (13.5-18.0) g/dL ABG Oxyhemoglobin % ABG Carboxyhemoglobin (0.0-1.6) % ABG Methemoglobin % Phillip Test O2 Delivery Device Sodium (140-148) mmol/L Potassium (3.6-5.2) mmol/L Chloride (100-108) mmol/L Carbon Dioxide (21-32) mmol/L Anion Gap (5.0-14.0) mmol/L BUN (7-18) mg/dL Creatinine (0.8-1.3) mg/dL Est Cr Clr Drug Dosing mL/min Estimated GFR (MDRD) (>60) Glucose (74-106) mg/dL Calcium (8.5-10.1) mg/dL Total Bilirubin (0.2-1.0) mg/dL AST (15-37) U/L ALT (12-78) U/L Alkaline Phosphatase (46-116) U/L Total Protein (6.4-8.2) g/dL Albumin (3.4-5.0) g/dL Globulin (2.3-3.5) g/dL Albumin/Globulin Ratio (1.2-2.2) Lipase 99 (73-393) U/L Urine Color Yellow Urine Appearance Slightly cloudy Urine pH 5.0 (4.5-8.0) Ur Specific [place] 1.010 (1.008-1.030) Urine Protein Negative (NEGATIVE) mg/dL Urine Glucose (UA) Normal (NEGATIVE) mg/dL Urine Ketones 15 H (NEGATIVE) mg/dL Urine Occult Blood Moderate (NEGATIVE) Urine Nitrite Negative (NEGAITVE) Urine Bilirubin Negative (NEGATIVE) Urine Urobilinogen Normal (NORMAL) mg/dL Ur Leukocyte Esterase Small (NEGATIVE) Urine RBC 5-10 H (0-5) Urine WBC 0-5 (0-5) Ur Epithelial Cells Few Amorphous Sediment Not seen Urine Bacteria Not seen Urine Mucus Many 06/11/18 Range/Units 04:20 WBC (4.5-11.0) K/uL RBC (4.30-5.90) M/uL Hgb (12.0-15.0) g/dL Hct (40.0-54.0) % MCV (80-98) fL MCH (27-31) pg MCHC (32-36) % Plt Count (150-400) K/uL Neut % (Auto) (36-66) % Lymph % (Auto) (24-44) % [place] % (Auto) (2-6) % Eos % (Auto) (2-4) % Baso % (Auto) (0-1) % Puncture Site ABG pH (7.350-7.450) ABG pCO2 (35.0-42.0) mmHg ABG pO2 (75.0-100.0) mmHg ABG HCO3 (22.0-26.0) mmol/L ABG Total CO2 (23.0-27.0) mmol/L ABG O2 Saturation (95.0-98.0) % ABG O2 Content (15.0-23.0) %vol ABG Base Excess mm/L ABG Hemoglobin (13.5-18.0) g/dL ABG Oxyhemoglobin % ABG Carboxyhemoglobin (0.0-1.6) % ABG Methemoglobin % Phillip Test O2 Delivery Device Sodium 138 L (140-148) mmol/L Potassium 3.7 (3.6-5.2) mmol/L Chloride 101 (100-108) mmol/L Carbon Dioxide 28 (21-32) mmol/L Anion Gap 12.7 (5.0-14.0) mmol/L BUN 10 (7-18) mg/dL Creatinine 0.8 (0.8-1.3) mg/dL Est Cr Clr Drug Dosing 130.54 mL/min Estimated GFR (MDRD) > 60 (>60) Glucose 103 (74-106) mg/dL Calcium 8.7 (8.5-10.1) mg/dL Total Bilirubin 0.4 (0.2-1.0) mg/dL AST 28 (15-37) U/L ALT 65 (12-78) U/L Alkaline Phosphatase 52 (46-116) U/L Total Protein 6.3 L (6.4-8.2) g/dL Albumin 3.2 L (3.4-5.0) g/dL Globulin 3.1 (2.3-3.5) g/dL Albumin/Globulin Ratio 1.0 L (1.2-2.2) Lipase (73-393) U/L Urine Color Urine Appearance Urine pH (4.5-8.0) Ur Specific [place] (1.008-1.030) Urine Protein (NEGATIVE) mg/dL Urine Glucose (UA) (NEGATIVE) mg/dL Urine Ketones (NEGATIVE) mg/dL Urine Occult Blood (NEGATIVE) Urine Nitrite (NEGAITVE) Urine Bilirubin (NEGATIVE) Urine Urobilinogen (NORMAL) mg/dL Ur Leukocyte Esterase (NEGATIVE) Urine RBC (0-5) Urine WBC (0-5) Ur Epithelial Cells Amorphous Sediment Urine Bacteria Urine Mucus Med Orders - Current: Current Medications Hydrocodone Bitart/Acetaminophen ([place] 325-5 Mg) 1 tab PO Q4H PRN PRN Reason: Pain Albuterol (Ventolin Hfa) 0 gm INH Q4H PRN PRN Reason: SHORTNESS OF BREATH Famotidine (Pepcid) 20 mg PO BID [facility] Lactated Ringer's (Ringers, Lactated) 1,000 mls @ 200 mls/hr IV ASDIRECTED [facility] Last Admin: 06/11/18 06:02 Dose: 200 mls/hr Influenza Virus Vaccine (Fluzone Quad [id number] Syringe) 60 mcg IM .ONCE ONE Stop: 06/12/18 15:01 Magnesium Hydroxide (Milk Of Magnesia) 30 ml PO BID PRN PRN Reason: Constipation Non-Formulary Medication (Fluticasone/Salmeterol [Advair 250-50 Diskus]) 1 puff IH BID [facility] Ondansetron HCl (Zofran) 4 mg IV Q6H PRN PRN Reason: Nausea/Vomiting Ondansetron HCl (Zofran Odt) 4 mg PO Q6H PRN PRN Reason: Nausea Pantoprazole Sodium (Protonix) 40 mg PO DAILY@0730 [facility] Polyethylene Glycol (Miralax) 17 gm PO DAILY [facility] Scopolamine (Transderm-Scop) 1.5 mg TRDERM Q72H PRN PRN Reason: Nausea Discontinued Medications Hydromorphone HCl (Dilaudid) 0.5 mg IVPUSH ONETIME ONE Stop: 06/10/18 18:40 Last Admin: 06/10/18 18:46 Dose: 0.5 mg Hydromorphone HCl (Dilaudid) 1 mg IVPUSH ONETIME ONE Stop: 06/10/18 20:11 Last Admin: 06/10/18 20:36 Dose: 1 mg Hydromorphone HCl (Dilaudid Seed Analysis Laboratory Assistant 15 Mg In Ns 30 Ml) 0 mg IV ASDIRECTED PRN; Protocol PRN Reason: Pain Last Admin: 06/10/18 22:19 Dose: 15 mg Sodium Chloride (Normal Saline) 1,000 mls @ 999 mls/hr IV ASDIRECTED [facility] Last Admin: 06/10/18 22:21 Dose: 999 mls/hr Sodium Chloride (Normal Saline) 1,000 mls @ 999 mls/hr IV ASDIRECTED [facility] Last Admin: 06/10/18 20:36 Dose: 999 mls/hr Sodium Chloride (Normal Saline) 1,000 mls @ 300 mls/hr IV ASDIRECTED [facility] Last Admin: 06/10/18 22:30 Dose: 300 mls/hr Influenza Virus Vaccine (Pharmacy To Dose - Influenza Vaccine) 1 each IM ONETIME ONE Stop: 06/11/18 10:01 Lorazepam (Ativan) 0.5 mg IVPUSH ONETIME ONE Stop: 06/10/18 18:40 Last Admin: 06/10/18 18:53 Dose: 0.5 mg Magnesium Hydroxide (Milk Of Magnesia) 30 ml PO ONETIME ONE Stop: 06/11/18 08:01 Naloxone HCl (Narcan) 0.4 mg IVPUSH Q2M PRN PRN Reason: Respiratory Distress Prochlorperazine Edisylate (Compazine) 10 mg IVPUSH ONETIME ONE Stop: 06/10/18 18:39 Last Admin: 06/10/18 18:47 Dose: 10 mg - Exam General: Alert, Oriented Neck: Supple Lungs: Clear to Auscultation, Normal Respiratory Effort Cardiovascular: Regular Rate, Regular Rhythm Extremities: No Pedal Edema Neurological: No New Focal Deficit Psy/Mental Status: Normal Affect, Normal Mood Physical Findings Comment:: Urine output 50 mL - Problem List Review Problem List Initiated/Reviewed/Updated: Yes - My Orders Last 24 Hours: Active Orders 24 hr Category Date Time Status Admission Status [Patient Status] [ADT] Routine ADT 06/10/18 20:59 Active Communication Order [RC] STAT Care 06/10/18 21:18 Active May Shower [RC] ASDIRECTED Care 06/11/18 07:29 Active Notify Provider [RC] PRN Care 06/10/18 21:18 Active Oxygen Therapy [RC] PRN Care 06/10/18 21:05 Active Up ad Kasey [RC] ASDIRECTED Care 06/10/18 21:04 Active VTE/DVT Education [RC] Per Unit Routine Care 06/10/18 21:05 Active Vital Signs [RC] Q4H Care 06/10/18 21:05 Active Regular Diet [DIET] Diet 06/11/18 Breakfast Active Acetaminophen/HYDROcodone [[place] 325-5 MG] Med 06/11/18 07:30 Active 1 tab PO Q4H PRN Albuterol [Ventolin HFA] Med 06/11/18 07:30 Active 0 gm INH Q4H PRN FLU Vacc [id number] 36MOS UP/PF [Fluzone Quad [id number] Med 06/12/18 15:00 Once Syringe] 60 mcg IM .ONCE ONE Famotidine [Pepcid] Med 06/11/18 09:00 Active 20 mg PO BID Fluticasone/Salmeterol [Advair 250-50 Diskus] Med 06/11/18 09:00 Ordered 1 puff IH BID Lactated Ringers [Ringers, Lactated] 1,000 ml Med 06/11/18 01:00 Active IV ASDIRECTED Magnesium Hydroxide [Milk of Magnesia] Med 06/11/18 07:31 Active 30 ml PO BID PRN Ondansetron [Zofran ODT] Med 06/11/18 07:30 Active 4 mg PO Q6H PRN Ondansetron [Zofran] Med 06/10/18 21:04 Active 4 mg IV Q6H PRN Pantoprazole [ProTONIX] Med 06/11/18 09:00 Active 40 mg PO DAILY@0730 Polyethylene Glycol 3350 [MiraLAX] Med 06/11/18 09:00 Active 17 gm PO DAILY Scopolamine [Transderm-Scop] Med 06/11/18 07:30 Active 1.5 mg TRDERM Q72H PRN SCD [Sequential Compression Device] [OM.PC] Routine Oth 06/11/18 01:57 Ordered Resuscitation Status Routine Resus Stat 06/10/18 21:04 Ordered Medication Orders Hydrocodone Bitart/Acetaminophen ([place] 325-5 Mg) 1 tab PO Q4H PRN PRN Reason: Pain Albuterol (Ventolin Hfa) 0 gm INH Q4H PRN PRN Reason: SHORTNESS OF BREATH Famotidine (Pepcid) 20 mg PO BID [facility] Lactated Ringer's (Ringers, Lactated) 1,000 mls @ 200 mls/hr IV ASDIRECTED [facility] Last Admin: 06/11/18 06:02 Dose: 200 mls/hr Infusion: 02/27/19 06:02 Dose: 200 mls/hr Admin: 06/11/18 06:01 Dose: 200 mls/hr Influenza Virus Vaccine (Fluzone Quad [id number] Syringe) 60 mcg IM .ONCE ONE Stop: 06/12/18 15:01 Magnesium Hydroxide (Milk Of Magnesia) 30 ml PO BID PRN PRN Reason: Constipation Non-Formulary Medication (Fluticasone/Salmeterol [Advair 250-50 Diskus]) 1 puff IH BID [facility] Ondansetron HCl (Zofran) 4 mg IV Q6H PRN PRN Reason: Nausea/Vomiting Ondansetron HCl (Zofran Odt) 4 mg PO Q6H PRN PRN Reason: Nausea Pantoprazole Sodium (Protonix) 40 mg PO DAILY@0730 [facility] Polyethylene Glycol (Miralax) 17 gm PO DAILY [facility] Scopolamine (Transderm-Scop) 1.5 mg TRDERM Q72H PRN PRN Reason: Nausea - Assessment Assessment (Free Text/Narrative):: Pre-Op Diagnosis: Biliary dyskinesia Post-OP Diagnosis: Biliary dyskinesia Procedure: Diagnostic laparoscopic cholecystectomy Date of Surgery: 06/09/18 Surgeon: Carlton Yusuf MD - Plan Plan (Free Text/Narrative):: 1. Start [place] 325-5 mg 1 tab PO every 4 hours as needed for pain. 2. Start Scopolamine patch 1.5 mg transdermal patch every 3 days for nausea. 3. Give Ondansetron 4 mg PO every 6 hours PRN for nausea. 4. Start MiraLax 17 grams PO daily for constipation. 5. Give Milk of Magnesia 30 mL PO BID as needed for constipation. 6. Start omeprazole 20 mg PO daily. 7. Continue Advair 250-50 diskus 1 inhalation BID. 8. Continue Albuterol 2 puffs every 4hours pRN for shortness of breath. 9. Continue Pepcid 20 mg PO BID. 10. Home medications were reconciled.
[2018-06-11] MEDS: Acetaminophen/HYDROcodone 325-5 MG Tab PO PRN ×4 (08:11→23:15)
[2018-06-11] MEDS: Famotidine 20 MG Tab PO SCH ×2 (09:08→20:50)
[2018-06-11] MEDS: Pantoprazole 40 MG Tab.CR PO SCH (09:08)
[2018-06-11] MEDS: Polyethylene Glycol 3350 Powder 17 GM Packet PO SCH (09:08)
[2018-06-11] MEDS: Formoterol/Mometasone 200-5 MCG 8.8 GM Inhaler IH SCH ×2 (09:53→20:50)
[2018-06-12] MEDS: Acetaminophen/HYDROcodone 325-5 MG Tab PO PRN ×3 (04:47→13:02)
[2018-06-12] MEDS: Formoterol/Mometasone 200-5 MCG 8.8 GM Inhaler IH SCH (07:18)
[2018-06-12] MEDS ORDERED: Ibuprofen 600 MG Tab PO PRN (07:36)
[2018-06-12] MEDS: Pantoprazole 40 MG Tab.CR PO SCH (07:42)
[2018-06-12] MEDS: Famotidine 20 MG Tab PO SCH (08:56)
[2018-06-12] MEDS: Polyethylene Glycol 3350 Powder 17 GM Packet PO SCH (08:56)
--- NOTE | 2018-06-12 09:17 | DISCH ---
ADMISSION DIAGNOSES: 1. Status post laparoscopic cholecystectomy, in adequate pain control. 2. Dehydration. DISCHARGE DIAGNOSES: 1. Adequate pain control. 2. Dehydration, resolved. HISTORY: Paco Nickerson is a 38-year-old male who had a laparoscopic cholecystectomy on 06/09/2018. He was discharged on 06/10/2018 and was not able to picker packer his home medication due to insurance reason. He returned to the emergency room at 1841 with pain, continual hiccuping, nausea, vomiting. He was admitted to observation for pain control and dehydration. HOSPITAL COURSE: Paco went to the ER after discharge from the hospital on postop day #1, laparoscopic cholecystectomy, on 06/10/2018. He was started on IV fluids. Medications for nausea and pain medication. Vital signs remained stable. Oral intake was 3870. Urine output 2650. He had one bowel movement. On 06/12/2017, he was ready to be discharged to home without any complications. PHYSICAL EXAMINATION: GENERAL: Paco Nickerson is a 38-year-old male. VITAL SIGNS: Height is 5 feet 10 inches, weight is 199 pounds. TPR is 97.3, 77, 18, blood pressure 133/84. HEENT: Negative. NECK: Supple. HEART: Regular rate and rhythm. LUNGS: Clear. ABDOMEN: Incisions look good. Abdominal binder is on. EXTREMITIES: Without peripheral edema. DISPOSITION: Discharged to home. CONDITION: Stable and improving. FOLLOWUP: Carlton Yusuf MD on 06/18/2018 at 10:00 a.m. HOME MEDICATIONS: He is to resume the hydrocodone 5/325 mg one every 4 hours, #40, and his home medications. DIET: Usual diet as tolerated. Drink 8 to 10 glasses of water a day. ACTIVITY: No lifting greater than 10 pounds for 2 weeks. Wear abdominal binder for 2 weeks. Walk at least 6 times daily inside your home. DISCHARGE INSTRUCTIONS: Use incentive spirometer 10 times every hour while awake. Notify provider if any fever, increased pain, nausea, or vomiting. No driving for 1 week or while on pain medication.
[2018-06-12 12:08] VITALS: BP 142/99
== END 2018-06-12 13:10 | disposition home or self-care (01) ==
LOC: JP.ED 17:59 → JP.MS 20:59
PROVIDERS: ADMIT Surgery; ATTEND Surgery
DX: G89.18 Other acute postprocedural pain (principal); R10.0 Acute abdomen; E86.0 Dehydration; J45.909 Unspecified asthma, uncomplicated; Z90.49 Acquired absence of other specified parts of digestive tract; Z88.0 Allergy status to penicillin; Z91.013 Allergy to seafood; Z79.899 Other long term (current) drug therapy
CPT/HCPCS: 36415; 36600; 80053; 81001; 82803; 83690; 85025; 85027; 90686; 94640; 96361; 96374; 96375; 96376; 99284-25; A9270-GY; G0008; G0378; J0780; J1170; J2060; J7030; J7120

== ENCOUNTER 2020-03-21 11:35 | Emergency (ER) | payer MEDICAID ==
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
--- NOTE | 2020-03-21 12:45 | CR ---
CHEST: 2 view CLINICAL HISTORY:Chest pain, history of elevated left hemidiaphragm COMPARISON:CT 2007 FINDINGS: There is moderate elevation left hemidiaphragm. There is some subsegmental atelectasis or scarring in the lingula. Heart size and pulmonary vascularity are normal. No infiltrates are seen Impression: Moderate elevation left hemidiaphragm similar to 2007.
== END 2020-03-21 13:40 | disposition home or self-care (01) ==
LOC: JP.ED 11:35
DX: R07.89 Other chest pain (principal); J45.909 Unspecified asthma, uncomplicated; Z88.1 Allergy status to other antibiotic agents; Z88.0 Allergy status to penicillin; Z91.013 Allergy to seafood; Z79.899 Other long term (current) drug therapy
CPT/HCPCS: 36415; 71046; 71046-26; 80048; 84484; 85025; 85379; 93005; 93010; 99284; 99285-25

== ENCOUNTER 2020-12-06 13:06 | Emergency (ER) | payer OTHER, MEDICAID ==
[2020-12-06] MEDS: Lidocaine 1% with EPINEPHrine 1:100,000 50 ML MDV SUBCUT STA (14:35)
[2020-12-06] MEDS: Bacitracin Oint 1 GM U/D Packet TOP ONE (14:35)
--- NOTE | 2020-12-06 14:37 | EDM.PDOC ---
ED HPI GENERAL MEDICAL PROBLEM - General Chief Complaint: Upper Extremity Injury/Pain Stated Complaint: CHUNK OF WOOD IN HAND Time Seen by Provider: 12/06/20 14:19 Source of Information: Reports: Patient, RN Notes Reviewed History Limitations: Reports: No Limitations - History of Present Illness INITIAL COMMENTS - FREE TEXT/NARRATIVE: 40-year-old gentleman presents emergency department today with a embedded what he believes is a piece of wood in the palmar surface of his right hand this happened when he was doing some woodworking earlier today. He was unable to get it out no functional complaints - Related Data Allergies Allergy/AdvReac Type Severity Reaction Status Date / Time amoxicillin Allergy Hives Verified 12/06/20 14:09 cefaclor Allergy Other Verified 12/06/20 14:09 Penicillins Allergy Hives Verified 12/06/20 14:09 shellfish derived Allergy Cannot Verified 12/06/20 14:09 Remember Home Meds: Home Meds Albuterol [Ventolin HFA] 2 puff INH Q4H PRN 05/30/18 [History] Fluticasone Propion/Salmeterol [Advair 250-50 Diskus] 1 puff IH BID 05/30/18 [History] Past Medical History HEENT History: Reports: Allergic Rhinitis Respiratory History: Reports: Asthma Musculoskeletal History: Reports: Fracture, Other (See Below) Other Musculoskeletal History: surgical repair of muscles in the neck Neurological History: Reports: Other (See Below) 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 - Infectious Disease History Infectious Disease History: Reports: Chicken Pox - Past Surgical History Head Surgeries/Procedures: Reports: None HEENT Surgical History: Reports: Myringotomy w Tube(s) Respiratory Surgical History: Reports: None GI Surgical History: Reports: Cholecystectomy, Hernia, Abdominal Neurological Surgical History: Reports: None Musculoskeletal Surgical History: Reports: Arthroscopic Knee Dermatological Surgical History: Reports: None Social & Family History - Family History Family Medical History: No Pertinent Family History - Tobacco Use Tobacco Use Status *Q: Never Tobacco User Second Hand Smoke Exposure: No - Caffeine Use Caffeine Use: Reports: Coffee, Soda - Recreational Drug Use Recreational Drug Use: No Review of Systems - Review of Systems Review Of Systems: See Below Skin: Reports: Wound ED EXAM, GENERAL - Physical Exam Exam: See Below Free Text/Narrative:: Small puncture wound is appreciated on the palmar surface of the right hand no visible foreign body is appreciated radial pulses +2 sensation is intact full range of motion all digits ED TRAUMA EXTREMITY PROCEDURES - Foreign Body Removal Indication:: Piece of wood palmar surface right hand Consent Obtained: Patient Performing Doctor:: OfficerDiogo Anesthesia Type: Local Findings:: After adequate anesthesia small 1 cm incision was used to create a larger opening for better visualization a large 3 cm x 1 cm piece of wood was removed Complications:: No Comments:: 1 stitch was then placed in the incision used for exposure of 4-0 nylon Course - Vital Signs Last Recorded V/S: Last Vital Signs Temp 97.6 F 12/06/20 14:13 Pulse 72 12/06/20 14:13 Resp 16 12/06/20 14:13 BP 136/86 12/06/20 14:13 Pulse Ox 95 12/06/20 14:13 - Orders/Labs/Meds Meds: Medications Discontinued Medications Generic Name Dose Route Start Last Admin Trade Name Freq PRN Reason Stop Dose Admin Bacitracin 1 dose 12/06/20 14:28 12/06/20 14:35 Bacitracin Oint 1 Gm U/D Packet TOP 12/06/20 14:29 1 dose ONETIME ONE Administration Lidocaine/Epinephrine 20 ml 12/06/20 14:27 12/06/20 14:35 Lidocaine 1% With Epinephrine 1:100,000 50 Ml Mdv SUBCUT 12/06/20 14:28 20 ml NOW STA Administration Departure - Departure Time of Disposition: 15:09 Disposition: Home, Self-Care 01 Condition: Good Clinical Impression: Foreign body (FB) in soft tissue - Discharge Information Referrals: Ladan Escoto MD [Primary Care Provider] - Forms: ED Department Discharge Additional Instructions: Follow wound care instruction sheet, follow-up with your primary care return to clinic for suture removal in 10 days Sepsis Event Note (ED) - Evaluation Sepsis Screening Result: No Definite Risk - Focused Exam Vital Signs: Vital Signs Temp Pulse Resp BP Pulse Ox 12/06/20 14:13 97.6 F 72 16 136/86 95 12/06/20 14:08 97.6 F 72 16 136/86 95 - Assessment/Plan Plan: Assessment Acuity = acute Site and laterality = foreign body removal right hand Etiology = piece of wood Manifestations = none Location of injury = work Lab values = none Plan Suture removal in 10 days follow-up primary care return to the emergency department for suture removal This note was dictated using [employer] voice recognition software please call with any questions on syntax or grammar.
== END 2020-12-06 15:19 | disposition home or self-care (01) ==
LOC: JP.ED 13:06
DX: S60.551A Superficial foreign body of right hand, initial encounter (principal); J45.909 Unspecified asthma, uncomplicated; Z88.0 Allergy status to penicillin; Z88.1 Allergy status to other antibiotic agents; Z91.013 Allergy to seafood; Z79.899 Other long term (current) drug therapy; W45.8XXA Other foreign body or object entering through skin, initial encounter
CPT/HCPCS: 10120; 99283-25

== ENCOUNTER 2022-03-05 09:19 | Emergency (ER) | payer MEDICAID | END 2022-03-05 12:17 | disposition home or self-care (01) | LOC: JP.ED 09:19 | DX: K57.32 Diverticulitis of large intestine without perforation or abscess without bleeding (principal); J45.909 Unspecified asthma, uncomplicated; Z88.0 Allergy status to penicillin; Z88.1 Allergy status to other antibiotic agents; Z91.013 Allergy to seafood; Z90.49 Acquired absence of other specified parts of digestive tract | CPT/HCPCS: 36415; 74176; 74176-26; 80048; 85025; 99284 ==